=== PATIENT | male | born 1970 | race Hispanic/Latino ===

== ENCOUNTER 2022-07-28 12:07 | Emergency (ER) | payer OTHER ==
[2022-07-28] VITALS (7 sets, daily range): BP systolic 154–177; BP diastolic 88–94
[~2022-07-28] VITALS: Ht 175.3 cm; Wt 113.6 kg
[~2022-07-28 12:07] MED LIST: FLEXERIL OR; LORTAB 10 OR; NO HOME MEDS
[2022-07-28] MEDS ORDERED: CEPHALEXIN500 M1 PO (14:41)
== END 2022-07-28 15:02 | disposition home or self-care (01) | DRG 605 ==
LOC: ED 12:07
DX: S61.411A Laceration without foreign body of right hand, initial encounter (principal); W45.8XXA Other foreign body or object entering through skin, initial encounter

== ENCOUNTER 2022-08-05 14:31 | Emergency (ER) | payer OTHER ==
[~2022-08-05] VITALS: Ht 175.3 cm; Wt 108.8 kg
[~2022-08-05 14:31] MED LIST changes: +CEPHALEXIN500 M1 PO
[2022-08-05 14:36] VITALS: BP 146/91
[2022-08-05] MEDS ORDERED: OMNI-PAC300 MG PO (14:58)
[2022-08-05 15:00] VITALS: BP 140/86
[2022-08-05 15:39] VITALS: BP 140/86
== END 2022-08-05 15:40 | disposition home or self-care (01) | DRG 951 ==
LOC: ED 14:31
DX: Z48.02 Encounter for removal of sutures (principal)

== ENCOUNTER 2023-08-17 09:44 | Emergency (ER) | payer OTHER ==
[2023-08-17] VITALS (10 sets, daily range): BP systolic 134–162; BP diastolic 82–93
[~2023-08-17] VITALS: Ht 175.3 cm; Wt 105.4 kg
[~2023-08-17 09:44] MED LIST changes: +OMNI-PAC300 MG PO
[2023-08-17] MEDS ORDERED: ACYCLOVIR400 MG PO (12:15)
[2023-08-17] MEDS ORDERED: CLINDAMYCIN HC150 MG PO (12:15)
== END 2023-08-17 12:43 | disposition home or self-care (01) | DRG 728 ==
LOC: ED 09:44
DX: A60.01 Herpesviral infection of penis (principal); I10 Essential (primary) hypertension; E11.9 Type 2 diabetes mellitus without complications; E78.00 Pure hypercholesterolemia, unspecified